=== PATIENT | female | born 1985 | race Caucasian/White ===

== ENCOUNTER 2025-02-28 10:47 | Outpatient (AMB) | payer OTHER, SELFPAY ==
--- NOTE | 2025-02-28 11:20 | AMB.GYNCLNOT ---
Vital Signs 02/28/25 11:32 Height 1.6 m Height Method Stated Weight 99.507 kg Weight Measurement Method Standing Scale BMI 38.8 BP 125/82 Blood Pressure Source Automatic Cuff Blood Pressure Location Left Upper Arm Position Sitting Respiration 16 Pulse 98 Pulse Source Monitor Temp 98.2 F Temp Source Temporal Artery Scan Pulse Oximetry (%) 95 Oxygen Delivery Method Room Air Allergies/Home Meds Allergies & Medications Allergies No Known Allergies Allergy (Verified 02/28/25 11:33) Intake Visit Data Collection New Patient or Established: Established Patient (seen at [facility] within 3 years) Reason for Visit:: IRREGULAR MENSES AND PELVIC PAIN Do You Feel Safe at Home: Yes Authorities Contacted: N/A PCP or OBGYN visit in last 3 months: No Hx Now: No Are you currently on any form of Control: No Pain Present Currently: No Pain Scale Used: Fernández-Hernandez/Numerical Pain scale:: 0 Smoking Status Smoking Status: Never smoker [employer]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 1. Little interest or pleasure in doing things: not at all 2. Feeling down, depressed, or hopeless: not at all Total score: 0 PHQ-9 3. Trouble falling or staying asleep, or sleeping too much: Not at all 4. Feeling tired or having little energy: Not at all 5. Poor appetite or overeating: Not at all 6. Feeling bad about yourself - or that you are a failure or have let yourself or your family down: Not at all 7. Trouble concentrating on things, such as reading the newspaper or watching television: Not at all 8. Moving or speaking so slowly that other people could have noticed? - Or the opposite - being so fidgety or restless that you have been moving around a lot more than usual: not at all 9. Thoughts that you would be better off or of hurting yourself in some way: Not at all Total score: 0 If you checked off any problems, how difficult have these problems made it for you to do your work, take care of things at home, or get along with other people?: not difficult at all Source: Developed by Drs. Lane Walden, Poppy Yanes, Ruiz Valentin and colleagues, with an educational anahy from [employer]. Depression screen completed yes Social History Living Situation History Marital Status: Lives With: Family Housing: House Housing Other:: Pt had a hx of x 2 and has a total of 5 kids, some adopted Tobacco History Smoking Status: Never smoker Alcohol History Alcohol Intake: Current Alcohol Intake Frequency: holidays/special occasions only Domestic Abuse History Do You Feel Safe at Home: Yes Past Medical History Past Medical History Have you ever been diagnosed with any of the following: Neurological Problems Migraine: No Cardiology Problems Cardiac Arrhythmia: No Hypertension: No Respiratory Problems Asthma: No Stomache/Intestinal Problems Gall Bladder Disease: No Irritable Bowel: No Obesity: Yes Genital/Urinary Problems Renal Disease: No Kidney Stones: No Reproductive Problems Endometriosis: Yes (Patient has had endometriosis diagnosed prior on laparoscopy) Pelvic Inflammatory Disease: No Previous Pregnancies: Yes ( x 2 in the past, 30 weeks and 29 weeks) Endocrine Problems Diabetes Mellitus Type 2: No Hyperthyroidism: No Hypothyroidism: No Systemic Lupus Erythematosus: No Blood Problems Anemia: No Psychologic Problems Recreational Drug Use: No Depression: No Anxiety: No Other Problems Hospitalization: Yes (For childbirth) Surgical History Additional Surgical History: x 2, laparoscopy where endometriosis was diagnosed. One laparoscopy turned into a laparotomy. History of Present Illness HPI Narrative The patient is a 40-year-old -2-0-2 history of x 2 in the past at 30 weeks and 29 weeks she stated she ruptured her membranes early both times. She is a new patient to me. Her mother is my patient in [place]. The patient stated she had seen other doctors and has been diagnosed with endometriosis in the past. She has severe pelvic pain and wants her uterus taken out. She is pretty sure she wants her ovaries taken out at the same time. One of the surgeons told her that her endometriosis was severe and stated her bowel was stuck. She did not bring any medical records or transfer any medical records for me to review. Her last Pap was a couple of years ago. The patient has not had a recent ultrasound. She stated she stopped her cycles at age 37 and then restarted having them and now is bleeding twice a month. The patient is interested in hearing about a hysterectomy. Review of Systems Constitutional Comments: Patient reports dyspareunia, dysmenorrhea, irregular cycles and in general pelvic pain. She denies hot flashes or night sweats. She stated she stopped her cycles 3 years ago and restarted them. No fevers chills nausea vomiting or abnormal discharge. She does not desire future childbearing. Exam General General Appearance: alert, in no apparent distress, comfortable, cooperative, healthy appearing and well groomed Head Head exam: atraumatic, normocephalic and normal inspection Neck Neck exam: Present normal inspection, full ROM and trachea midline Chest Chest inspection: Present normal inspection and symmetric chest wall rise Exp Chest Breast: bilateral: other (Normal breast exam bilaterally) Resp Respiratory exam: Present normal lung sounds bilaterally Card Cardiovascular exam: Present regular rate, normal rhythm and normal heart sounds Abdominal Abdominal exam: Present soft and normal bowel sounds External exam: Present normal external exam Speculum exam: Present normal speculum exam and vaginal discharge (Old blood present. No odor) Bimanual exam: Present normal bimanual exam and other (No cervical motion tenderness. No adnexal masses) Extremities Extremities exam: Present normal inspection and full ROM Back Back exam: Present normal inspection and full ROM Psych Psychiatric exam: Present normal affect and normal mood Skin Skin exam: Present warm, dry, intact and normal color Assessment & Plan Diagnosis / Problem List (1) Hx of dysfunctional uterine bleeding: Status: Acute Assessment and Plan: Check a pelvic ultrasound. Check labs including LH FSH estradiol prolactin thyroid. (2) Endometriosis determined by laparoscopy: Status: Acute Assessment and Plan: The patient is to release her op reports to me. She may be a good candidate for a hysterectomy but if she has severe endometriosis I would suggest a specialist. I am going to refer her to Dr. Tellez in [place] who is a [facility] surgeon and specializes in difficult endometriosis cases. She may qualify for a robotic hysterectomy. If she elects to have her ovaries removed at this age she will need hormone replacement therapy. (3) Women's annual routine gynecological examination: Status: Acute Assessment and Plan: Pap high risk HPV was performed breast exam done and encouraged mammogram was ordered Office Procedures OB Clinic LOC & Office Proc's Nursing/Assessment Patient Status: Established Patient OB Clinic Nursing Assessment: Medication Reconciliation, Update PMH in EMR and Vital Signs OB Clinic Coordination of Care: Complex Care and Chronic Disease 1-5, Consent,records obtained, informed consent, Education Simp Pt/Fam, Lab and Imaging orders and Staff clarify orders Miscellaneous Interventions: Breast Exam and Pelvic/Pap Smear Set up Established Patient Charge Established Patient Point Assignment: 150 Established Patient Point Charge: EP Level 4 (120-155) In Clinic Procedures Pap Smear: Yes TEXTILE STYLIST: Papsmear Pap Smear Procedure Chaparone in room during procedure?: No Pre-op diagnosis general: Annual wellness exam Post-op diagnosis procedure note: Same Procedure Notes:: Pap with cotesting to HPV was performed Papsmear completed: yes
[2025-02-28 11:32] VITALS: BP 125/82; PULSE 98; RESP 16; TEMP 36.8; O2SAT 95; BMI 38.8
== END 2025-02-28 12:55 | disposition home or self-care (01) ==
LOC: HODSOBC 10:47
PROVIDERS: Supervising Provider Obstetrics & Gynecology; Visit Provider Obstetrics & Gynecology
DX: N94.10 Unspecified dyspareunia (principal); N94.6 Dysmenorrhea, unspecified; N92.6 Irregular menstruation, unspecified; R10.2 Pelvic and perineal pain; Z87.42 Personal history of other diseases of the female genital tract
CPT/HCPCS: 99213; 99214; Q0091; G0463